=== PATIENT | male | born 1985 | race Caucasian/White ===

== ENCOUNTER 2022-11-13 14:40 | Inpatient (IN) | payer OTHER ==
[~2022-11-13] VITALS: Ht 177.8 cm; Wt 99.8 kg
[2022-11-13] MEDS ORDERED: ACETAMINOPHEN ES 500 MG TABLET PO ONE (15:00)
[2022-11-13] MEDS ORDERED: KETOROLAC TROMETHAMINE 15 MG INJ ONE (15:11)
[2022-11-13] MEDS ORDERED: ACETAMINOPHEN ES 500 MG TABLET ONE (15:11)
[2022-11-13] MEDS ORDERED: IV NORMAL SALINE 1000 ML BAG IV ONE (15:15)
[2022-11-13] MEDS ORDERED: KETOROLAC TROMETHAMINE 15 MG INJ IVP ONE (15:15)
[2022-11-13 15:24] LABS: HEMATOCRIT 38.1 % (36.7-47.1); MEAN CORPUSCULAR HEMOGLOBIN 25.1 uug (23.8-33.4); MEAN CORPUSCULAR VOLUME 75.7 fL (73.0-96.2); PLATELET COUNT (AUTO) 367 K/uL (152-348)
[2022-11-13 15:32] LABS: CARBON DIOXIDE 24 mmol/L (21-32); CHLORIDE 98 mmol/L (98-107); GLUCOSE 98 mg/dL (74-106); POTASSIUM 3.5 mmol/L (3.5-5.1); UREA NITROGEN, BLOOD 8 mg/dL (7-18)
--- NOTE | 2022-11-13 15:40 | NUR ---
Pt refused COVID test, HL anf IVF, Dr Rowland is aware.
[2022-11-13 15:41] LABS: ALANINE AMINOTRANSFERASE 28 U/L (16-63); ALKALINE PHOSPHATASE 92 U/L (50-136); ASPARTATE AMINOTRANSFERASE 12 U/L (15-37); BILIRUBIN,DIRECT 0.2 mg/dL (0.0-0.2); BILIRUBIN,TOTAL 0.7 mg/dL (0.2-1.0); TOTAL PROTEIN, SERUM 8.5 g/dL (6.4-8.2)
--- NOTE | 2022-11-13 16:15 | NUR ---
called Dr. Grande for Dr. Rowland
--- NOTE | 2022-11-13 16:20 | NUR ---
faxed facesheetr to Dr. Grande
[2022-11-13] MEDS ORDERED: CEFTRIAXONE 1 G in IV DEXTROSE 5% 50 ML IV ONE (16:30)
[2022-11-13] MEDS ORDERED: METRONIDAZOLE 500 MG/NS 100 ML PIGGYBACK IV ONE (16:30)
[2022-11-13] MEDS ORDERED: METRONIDAZOLE 500 MG/NS 100ML 100 ML IV ONE (16:45)
[2022-11-13] MEDS ORDERED: CEFTRIAXONE /D5W 50ML IVPB **ER PYXIS IV ONE (16:45)
[2022-11-13] MEDS ORDERED: ONDANSETRON 4 MG/2 ML VIAL IV PRN (18:00)
[2022-11-13] MEDS ORDERED: ACETAMINOPHEN 650 MG SUPP.RECT RC PRN (18:00)
[2022-11-13] MEDS ORDERED: MORPHINE SULFATE 2 MG/1 ML DISP.SYRIN IV PRN (18:00)
--- NOTE | 2022-11-13 21:44 | NUR ---
Called third floor to give report to Shraddha JOSHUA.
[2022-11-13 21:50] VITALS: BP 136/77
--- NOTE | 2022-11-13 21:50 | NUR ---
Received a 37 yr old male from ER with admitting diagnosis of diverticulitis. (-) PMH Patient complaining of acute abdominal pain upon admission. Temp 103.1 Tylenol suppository given. Skin intact. Voiding well in the urinal. All needs attended. IVF of D51/2 w/ 20meq KCL @ 90cc/hr via heplock on the left arm. IV ABT given as scheduled. No acute distress noted. Denies any pain nor any discomfort. Will recheck temperature. Temp 100. Ice pack applied to groin/axilla area. VSS.
[2022-11-13] MEDS ORDERED: PIPERACILLIN SODIUM/TAZOBACTAM 4.5 G in IV DEXTROSE 5% 50 ML IV SCH (22:00)
[2022-11-13] MEDS ORDERED: PIPERACILLIN/TAZO 4.5 GM VIAL IV ONE (22:14)
[2022-11-13] MEDS ORDERED: IV D5W-0.45% NS +20 KCL 1,000 ML IV ONE (22:16)
[2022-11-13] MEDS: POTASSIUM CHLORIDE 20 MEQ in IV D5 1/2 NS 1000 ML 1,000 ML IV PRN (22:23)
--- NOTE | 2022-11-13 22:40 | NUR ---
Patient was transferred upstairs via wheelchair with belongings. TRES [facility] made aware of patient's arrival.
[2022-11-13] MEDS: PIPERACILLIN SODIUM/TAZOBACTAM 4.5 G in IV DEXTROSE 5% 50 ML IV SCH (22:41)
[2022-11-14] MEDS ORDERED: PIPERACILLIN/TAZO 4.5 GM VIAL IV ONE (04:57)
[2022-11-14] MEDS: PIPERACILLIN SODIUM/TAZOBACTAM 4.5 G in IV DEXTROSE 5% 50 ML IV SCH (05:26)
[2022-11-14 05:39] VITALS: BP 124/72
[2022-11-14] MEDS ORDERED: MORPHINE SULFATE 2 MG/1 ML DISP.SYRIN IV PRN (06:01)
[2022-11-14 07:25] LABS: HEMATOCRIT 35.3 % (36.7-47.1); MEAN CORPUSCULAR HEMOGLOBIN 25.2 uug (23.8-33.4); MEAN CORPUSCULAR VOLUME 76.4 fL (73.0-96.2); PLATELET COUNT (AUTO) 321 K/uL (152-348)
--- NOTE | 2022-11-14 07:30 | NUR ---
RECEIVED PATIENT: 1) AOx4, no sign of SOB - RA, no sign of distress or sign of pain observed. 2) Plan CT Abdo & pelvis with contrast
[2022-11-14 07:38] LABS: BILIRUBIN,TOTAL 0.6 mg/dL (0.2-1.0); CREATININE 1.1 mg/dL (0.6-1.3); MAGNESIUM 2.1 mg/dL (1.8-2.4); PHOSPHOROUS 2.9 mg/dL (2.5-4.9); POTASSIUM 3.9 mmol/L (3.5-5.1); TOTAL PROTEIN, SERUM 7.7 g/dL (6.4-8.2)
--- NOTE | 2022-11-14 09:45 | NUR ---
Patient left the unit for CT Abdo/Pelvis with contrast. 2) Patient has a 20g JACKELINE - patent, clean, dry, and no sign of infection or inflammation observed. 3) Consent from completed and checklist completed
[2022-11-14] MEDS ORDERED: SWABABLE VALVE TRANSFER SET EA MC ONE (11:34)
[2022-11-14] MEDS ORDERED: IV NORMAL SALINE 250 ML IV ONE (11:34)
[2022-11-14] MEDS ORDERED: IOHEXOL 300MG/ML 100 ML INFUS..BTL ONE (11:34)
[2022-11-14 11:40] VITALS: BP 129/83
[2022-11-14] MEDS: POTASSIUM CHLORIDE 20 MEQ in IV D5 1/2 NS 1000 ML 1,000 ML IV PRN (12:11)
--- NOTE | 2022-11-14 12:35 | NUR ---
FLUIDS: Nee bag of iv fluids with potassium as per prescription.
[2022-11-14] MEDS ORDERED: PIPERACILLIN SODIUM/TAZOBACTAM 3.375 G in IV DEXTROSE 5% 100 ML IV SCH (14:00)
--- NOTE | 2022-11-14 15:00 | NUR ---
SB MD - wants to go home against medical advise. Risks explained and patient understands
[2022-11-14 15:47] VITALS: BP 142/87
--- NOTE | 2022-11-14 18:15 | NUR ---
DISCHARGE: 1) Patient signed form - AMA 2) Iv access removed - no sign of infection or bleeding 3) Medical records - informed and provided copies. 4) Patient accompanied by and father.
== END 2022-11-14 18:05 | disposition left against medical advice (07) | DRG 872 ==
LOC: ER 14:40 → MEDSURG3 21:38
PROVIDERS: ADMIT Internal Medicine; ATTEND Internal Medicine
DX: A41.9 Sepsis, unspecified organism (principal); K57.20 Diverticulitis of large intestine with perforation and abscess without bleeding; E66.9 Obesity, unspecified; Z68.31 Body mass index [BMI] 31.0-31.9, adult; K76.0 Fatty (change of) liver, not elsewhere classified; E87.6 Hypokalemia; Z87.09 Personal history of other diseases of the respiratory system; R05.9 Cough, unspecified; Z20.822 Contact with and (suspected) exposure to COVID-19; R00.0 Tachycardia, unspecified; R16.1 Splenomegaly, not elsewhere classified
CPT/HCPCS: 36415; 71045; 83605; 83690; 83735; 84100; 84484; 85025; 85730; 87040; 93005; A4663; A9150; G0378; J0696; J1885; J2543; J3480; J3490; Q9967